=== PATIENT | female | born 2005 | race Two or more races ===

== ENCOUNTER → 2025-05-22 | Outpatient (CLI) | payer OTHER ==
[2025-05-22 15:05] LABS: PLATELET COUNT, AUTOMATED 306 10^3/uL (150-450)
[2025-05-22 15:52] LABS: HIV 1&2 SCREEN NEGATIVE (NEGATIVE)
[2025-05-22 15:56] LABS: Trichomonas vaginalis (AMP) NOT DETECTED (NEGATIVE)
[2025-05-22 16:00] LABS: HEPATITIS C VIRUS ABY INDEX < 0.02 INDEX (<0.8)
[2025-05-22 16:19] LABS: GC DNA AMPLIFICATION NEGATIVE (NEGATIVE)
== END ==
LOC: M PLALAB 09:01
PROVIDERS: ATTEND Nurse Practitioner Family
DX: Z34.80 Encounter for supervision of other normal pregnancy, unspecified trimester (principal)

== ENCOUNTER → 2025-05-22 | Outpatient (REF) | payer OTHER | LOC: M PLALAB 08:34 | PROVIDERS: ATTEND Nurse Practitioner Family | DX: Z53.9 Procedure and treatment not carried out, unspecified reason (principal) ==